=== PATIENT | female | born 1995 | race Caucasian/White ===

== ENCOUNTER 2018-07-23 20:52 | Emergency (ER) | payer SELFPAY, MEDICAID | END 2018-07-24 00:43 | disposition left against medical advice (07) | LOC: FTE 20:52 | DX: Z53.21 Procedure and treatment not carried out due to patient leaving prior to being seen by health care provider (principal) ==

== ENCOUNTER 2018-07-27 14:15 | Emergency (ER) | payer MEDICAID ==
[2018-07-27] MEDS: SOD CHLORIDE 0.9% 1,000 ML IV (15:25)
[2018-07-27] MEDS: ACETAMINOPHEN 325 MG TAB PO (15:25)
[2018-07-27] MEDS: ONDANSETRON 4 MG INJ IV (15:25)
[2018-07-27 15:36] LABS: ADD MAN DIFF? NO; BASOPHILS % 0.5 % (0.0-2.0); EOSINOPHILS # 0.1 10^3/ul (0.0-0.5); HEMATOCRIT 40.9 % (37.0-47.0); HEMOGLOBIN 13.4 g/dl (12.0-16.0); LYMPHOCYTES # 1.4 10^3/ul (0.8-2.9); LYMPHOCYTES % 18.4 % (15.0-51.0); MEAN CORPUSCULAR HEMOGLOBIN 25.9 pg (29.0-33.0); MEAN CORPUSCULAR HGB CONC 32.8 g/dl (32.0-37.0); MEAN CORPUSCULAR VOLUME 79.1 fl (82.0-101.0); MEAN PLATELET VOLUME 10.2 fl (7.4-10.4); MONOCYTE # 0.8 10^3/ul (0.3-0.9); MONOCYTES % 10.5 % (0.0-11.0); NEUTROPHILS % 68.6 % (39.0-77.0); PLATELET COUNT 275 10^3/UL (140-415); RED BLOOD COUNT 5.17 10^6/ul (4.20-5.40); RED CELL DISTRIBUTION WIDTH 14.5 % (11.5-14.5)
[2018-07-27 15:36] LABS: WHITE BLOOD COUNT 7.3 10^3/ul (4.8-10.8)
[2018-07-27 15:58] LABS: ALANINE AMINOTRANSFERASE 24 IU/L (13-69); ALBUMIN 3.8 g/dl (3.3-4.9); ALBUMIN/GLOBULIN RATIO 1.08; ALKALINE PHOSPHATASE 49 IU/L (42-121); ANION GAP 13 (8-16); ASPARTATE AMINO TRANSFERASE 15 IU/L (15-46); BILIRUBIN,INDIRECT 0.1 mg/dl (0-1.1); BILIRUBIN,TOTAL 0.1 mg/dl (0.2-1.3); BLOOD UREA NITROGEN 5 mg/dl (7-20); CALCIUM 9.1 mg/dl (8.4-10.2); CARBON DIOXIDE 26 mmol/L (21-31); CHLORIDE 103 mmol/L (97-110); CREATININE 0.44 mg/dl (0.44-1.00); GLUCOSE 85 mg/dl (70-220); POTASSIUM 3.5 mmol/L (3.5-5.1); SODIUM 138 mmol/L (135-144); TOTAL PROTEIN 7.3 g/dl (6.1-8.1)
== END 2018-07-27 16:44 | disposition home or self-care (01) ==
LOC: FTE 16:44
DX: O21.9 Vomiting of pregnancy, unspecified (principal); R19.7 Diarrhea, unspecified; Z3A.16 16 weeks gestation of pregnancy
CPT/HCPCS: 36415; 76805; 80053; 85025; 96374; 99285-25

== ENCOUNTER 2018-12-09 08:33 | Inpatient (IN) | payer MEDICAID ==
[2018-12-09] MEDS ORDERED: MISOPROSTOL 200 MCG TAB PR ×2 (09:00→16:00)
[2018-12-09] MEDS ORDERED: METHYLERGONOVINE 0.2 MG INJ IM ×2 (09:00→16:00)
[2018-12-09] MEDS ORDERED: OXYTOCIN 30 UNITS/LR 500 ML IV ×2 (09:00→16:00)
[2018-12-09] MEDS ORDERED: BUTORPHANOL 2 MG INJ IV (09:00)
[2018-12-09] MEDS ORDERED: CARBOPROST 250 MCG INJ IM ×2 (09:00→16:00)
[2018-12-09] MEDS ORDERED: LIDOCAINE 1% (MPF) 30 ML INJ INJ (09:00)
[2018-12-09] MEDS ORDERED: BUTORPHANOL 1 MG INJ IV (09:00)
[2018-12-09] MEDS: LACTATED RINGER'S 1,000 ML IV ×2 (09:37→10:12)
[2018-12-09] MEDS: AMPICILLIN 2 GM/NS (PMX) 100 ML IV (09:38)
[2018-12-09 09:59] LABS: ADD MAN DIFF? NO
[2018-12-09 10:01] LABS: BASOPHILS % 0.5 % (0.0-2.0); EOSINOPHILS # 0.1 10^3/ul (0.0-0.5); EOSINOPHILS % 1.1 % (0.0-7.0); HEMATOCRIT 43.4 % (37.0-47.0); HEMOGLOBIN 13.8 g/dl (12.0-16.0); LYMPHOCYTES # 1.2 10^3/ul (0.8-2.9); LYMPHOCYTES % 18.6 % (15.0-51.0); MEAN CORPUSCULAR HGB CONC 31.8 g/dl (32.0-37.0); MEAN CORPUSCULAR VOLUME 78.6 fl (82.0-101.0); MEAN PLATELET VOLUME 10.1 fl (7.4-10.4); MONOCYTE # 0.7 10^3/ul (0.3-0.9); MONOCYTES % 11.7 % (0.0-11.0); NEUTROPHIL # 4.3 10^3/ul (1.6-7.5); NEUTROPHILS % 67.3 % (39.0-77.0); PLATELET COUNT 250 10^3/UL (140-415); RED BLOOD COUNT 5.52 10^6/ul (4.20-5.40); RED CELL DISTRIBUTION WIDTH 15.3 % (11.5-14.5)
[2018-12-09 10:01] LABS: WHITE BLOOD COUNT 6.4 10^3/ul (4.8-10.8)
[2018-12-09 10:22] LABS: INR 0.86; PROTIME 11.8 Sec (11.9-14.9); PT RATIO 0.9
[2018-12-09 10:23] LABS: PARTIAL THROMBOPLASTIN TIME 23.8 Sec (23.0-35.0)
[2018-12-09] MEDS ORDERED: FENTAnyl 2MCG/ML-ROPIV 0.2% 100 ML (10:34)
[2018-12-09] MEDS ORDERED: NALOXONE (0.4 MG/ML) INJ IV (11:00)
[2018-12-09] MEDS ORDERED: FENTAnyl 2MCG/ML-ROPIV 0.2% 100 ML BAG EPI (11:00)
[2018-12-09] MEDS: OXYTOCIN 30 UNITS/LR 500 ML IV ×4 (11:20→18:44)
[2018-12-09 11:53] LABS: HEPATITIS B SURFACE ANTIGEN NEGATIVE (NEGATIVE)
[2018-12-09] MEDS: AMPICILLIN 1 GM/NS (PMX) 50 ML IV (13:02)
[2018-12-09 13:23] LABS: HIV 1&2 ANTIBODY NEGATIVE (NEGATIVE)
[2018-12-09 15:12] LABS: RAPID PLASMA REAGIN NONREACTIVE (NR)
[2018-12-09 15:36] LABS: AMPHETAMINE/METHAMPHETAMINE Negative (NEGATIVE); BARBITURATES Negative (NEGATIVE); BENZODIAZEPINES Negative (NEGATIVE); CANNABINOIDS Negative (NEGATIVE); COCAINE Negative (NEGATIVE); OPIATES Negative (NEGATIVE)
[2018-12-09] MEDS ORDERED: DIPHENHYDRAMINE 25 MG CAP PO (16:00)
[2018-12-09] MEDS ORDERED: ZOLPIDEM 5 MG TAB PO (16:00)
[2018-12-09] MEDS ORDERED: HYDROCODONE/APAP (5/325) TAB PO (16:00)
[2018-12-09] MEDS ORDERED: ACETAMINOPHEN 325 MG TAB PO (16:00)
[2018-12-09] MEDS: BENZOCAINE 20% 56 ML SPRAY TOP (18:39)
[2018-12-09] MEDS: LANOLIN HPA 1 PKT TOP (18:40)
[2018-12-09] MEDS: WITCH HAZEL/GLYCERIN PAD PR (18:40)
[2018-12-09] MEDS: IBUPROFEN 800 MG TAB PO (18:41)
[2018-12-10] MEDS: IBUPROFEN 800 MG TAB PO ×5 (01:06→23:59)
[2018-12-10] MEDS: LACTATED RINGER'S 1,000 ML IV* (06:25)
[2018-12-10 06:47] LABS: ADD MAN DIFF? NO
[2018-12-10 06:51] LABS: BASOPHILS % 0.4 % (0.0-2.0); EOSINOPHILS # 0.1 10^3/ul (0.0-0.5); EOSINOPHILS % 1.4 % (0.0-7.0); HEMATOCRIT 38.4 % (37.0-47.0); HEMOGLOBIN 12.4 g/dl (12.0-16.0); LYMPHOCYTES # 1.5 10^3/ul (0.8-2.9); LYMPHOCYTES % 18.2 % (15.0-51.0); MEAN CORPUSCULAR HEMOGLOBIN 25.2 pg (29.0-33.0); MEAN CORPUSCULAR HGB CONC 32.3 g/dl (32.0-37.0); MONOCYTES % 12.1 % (0.0-11.0); NEUTROPHIL # 5.7 10^3/ul (1.6-7.5); NEUTROPHILS % 67.1 % (39.0-77.0); PLATELET COUNT 228 10^3/UL (140-415); RED BLOOD COUNT 4.92 10^6/ul (4.20-5.40); RED CELL DISTRIBUTION WIDTH 15.5 % (11.5-14.5)
[2018-12-10 06:51] LABS: WHITE BLOOD COUNT 8.4 10^3/ul (4.8-10.8)
[2018-12-10] MEDS: MEASLES,MUMPS,RUBELLA VACCINE INJ SC* (09:03)
[2018-12-10] MEDS: DIPHTH/TET/ACEL PERTUSS (ADULT) 0.5 ML VIAL IM* (09:03)
[2018-12-10] MEDS: SENNA/DOCUSATE NA (8.6MG/50MG) TAB PO (09:09)
[2018-12-10] MEDS: MAGNESIUM HYDROXIDE 30ML CUP PO (09:13)
[2018-12-11] MEDS: IBUPROFEN 800 MG TAB PO (06:00)
[2018-12-11] MEDS: VARICELLA VACCINE LIVE/PF 1,350 UNIT/0.5 ML ML SC* (09:47)
[2018-12-11 13:30] LABS: RUBELLA ANTIBODY - IGG <0.90 index; RUBELLA ANTIBODY - IGM <20.00 AU/mL
== END 2018-12-11 11:40 | disposition home or self-care (01) | DRG 807 ==
LOC: OBT 08:33 → L-D 08:34 → OBT 08:55 → L-D 08:55 → PP1 15:49
PROVIDERS: Obstetrics & Gynecology
PROC: 10E0XZZ Delivery of Products of Conception, External Approach (ICD-10-PCS; principal; 2018-12-09)
DX: O80 Encounter for full-term uncomplicated delivery (principal); Z37.0 Single live birth; Z3A.39 39 weeks gestation of pregnancy
CPT/HCPCS: 62319; 76815; 80307; 85025; 85610; 85730; 86592; 86703; 86762; 86850; 86900; 86901; 87340